=== PATIENT | female | born 1935 | race Caucasian/White ===

== ENCOUNTER 2017-09-18 17:06 | Inpatient (IN) | payer MEDICARE, MEDICAID ==
[~2017-09-18] VITALS: Ht 162.6 cm; Wt 66.3 kg
[2017-09-18] MEDS ORDERED: ALBUTEROL SULFATE 2.5 MG/ 0.5 ML NEBU ONE (17:43)
[2017-09-18] MEDS ORDERED: IPRATROPIUM BROMIDE 0.5 MG/2.5 ML NEBU ONE (17:43)
[2017-09-18] MEDS ORDERED: IPRATROPIUM BROMIDE 0.5 MG/2.5 ML NEBU NEB ONE (17:45)
[2017-09-18] MEDS ORDERED: IV NORMAL SALINE 1000 ML BAG IV ONE (17:45)
[2017-09-18] MEDS ORDERED: ALBUTEROL SULFATE 2.5 MG/3 ML NEBU NEB ONE (17:45)
[2017-09-18] MEDS ORDERED: ACETAMINOPHEN ES 500 MG TABLET PO ONE (17:45)
[2017-09-18] MEDS ORDERED: ACETAMINOPHEN 325 MG TABLET ONE (18:09)
[2017-09-18] MEDS ORDERED: ACETAMINOPHEN ES 500 MG TABLET ONE (18:10)
[2017-09-18 18:20] LABS: BASOPHILS % (AUTO) 0.2 % (0.0-2.0); EOSINOPHILS % (AUTO) 0.1 % (0.0-7.0); HEMATOCRIT 35.9 % (31.2-41.9); HEMOGLOBIN 11.9 g/dL (10.9-14.3); LYMPHOCYTES # (AUTO) 0.4 K/uL (20.0-40.0); LYMPHOCYTES % (AUTO) 8.1 % (20.5-51.5); MEAN CORPUSCULAR HEMOGLOBIN 29.3 uug (24.7-32.8); MEAN CORPUSCULAR HGB CONC 33 g/dL (32.3-35.6); MEAN CORPUSCULAR VOLUME 88.2 fL (75.5-95.3); MONOCYTES # (AUTO) 0.7 K/uL (2.0-10.0); MONOCYTES % (AUTO) 14.9 % (0.0-11.0); NEUTROPHILS # (AUTO) 3.7 K/uL (1.8-8.9); NEUTROPHILS % (AUTO) 76.7 % (38.5-71.5); PLATELET COUNT (AUTO) 156 K/uL (179-408); RED BLOOD CELL COUNT(AUTO) 4.07 MIL/uL (3.63-4.92); WHITE BLOOD COUNT (AUTO) 4.8 K/uL (3.8-11.8)
[2017-09-18 18:22] LABS: CARBON DIOXIDE 34 mmol/L (21-32); CHLORIDE 102 mmol/L (98-107); CREATININE 1.2 mg/dL (0.6-1.3); GLUCOSE 96 mg/dL (74-106); POTASSIUM 4.4 mmol/L (3.5-5.1); UREA NITROGEN, BLOOD 22 mg/dL (7-18)
[2017-09-18 18:37] LABS: ALANINE AMINOTRANSFERASE 33 U/L (14-59); ALKALINE PHOSPHATASE 77 U/L (50-136); ASPARTATE AMINOTRANSFERASE 48 U/L (15-37); BILIRUBIN,DIRECT 0.1 mg/dL (0.0-0.2); BILIRUBIN,TOTAL 0.4 mg/dL (0.2-1.0); TOTAL PROTEIN, SERUM 6.9 g/dL (6.4-8.2)
[2017-09-18] MEDS ORDERED: LEVOFLOXACIN 750MG/D5W 150 ML IV ONE ×2 (18:45)
[2017-09-18] MEDS ORDERED: methylPREDNISolone SOD SUCC 125 MG/2 ML VIAL IV ONE (19:00)
[2017-09-18] MEDS ORDERED: methylPREDNISolone SOD SUCC 125 MG/2 ML VIAL ONE (19:07)
[2017-09-18] MEDS ORDERED: IPRA0.2S48 NEB (19:07)
[2017-09-18] MEDS ORDERED: MOME13HF INH (19:07)
[2017-09-18] MEDS ORDERED: DOCU100C36 PO (19:07)
[2017-09-18] MEDS ORDERED: MAGN400T6 PO (19:07)
[2017-09-18] MEDS ORDERED: DIAZ5TAB4 PO (19:07)
[2017-09-18] MEDS ORDERED: LOPE2CAP PO (19:07)
[2017-09-18] MEDS ORDERED: DIAZ2TAB PO (19:07)
[2017-09-18] MEDS ORDERED: MAG360OR83 PO (19:07)
[2017-09-18] MEDS ORDERED: LEVO75TA PO (19:07)
[2017-09-18] MEDS ORDERED: HYDR28.316 RC (19:07)
[2017-09-18] MEDS ORDERED: ZOLP5TAB2 PO (19:07)
[2017-09-18] MEDS ORDERED: PANT40TA2 PO (19:07)
[2017-09-18] MEDS ORDERED: OXYC-128 PO (19:07)
[2017-09-18] MEDS ORDERED: MIRT15TA7 PO (19:07)
[2017-09-18] MEDS ORDERED: ACET-2154 PO (19:07)
[2017-09-18] MEDS ORDERED: TIOT18CA3 IH (19:07)
--- NOTE | 2017-09-18 19:21 | NUR ---
Report given to incoming shift pending orders and admission pending endorse.
--- NOTE | 2017-09-18 19:25 | NUR ---
HR 83, sbp 139/90.
--- NOTE | 2017-09-18 19:28 | NUR ---
RECEIVED REPORT FROM ANNABELLA KOCH
[2017-09-18] MEDS ORDERED: DOCUSATE SODIUM 100 MG CAPSULE PO PRN (19:30)
[2017-09-18] MEDS ORDERED: ONDANSETRON 4 MG/2 ML VIAL IV PRN (19:30)
[2017-09-18] MEDS ORDERED: Z GUARD REMEDY PASTE 57 GM TUBE TOP PRN ×2 (19:30→23:00)
[2017-09-18] MEDS ORDERED: ACETAMINOPHEN 325 MG TABLET PO PRN (19:30)
[2017-09-18] MEDS ORDERED: HYDROCORTISONE 2.5 % RECTAL CREAM 28.35 GM TUBE RC PRN (19:30)
[2017-09-18] MEDS ORDERED: MAGNESIUM HYDROXIDE 30 ML LIQUID UDC PO PRN (19:30)
[2017-09-18] MEDS ORDERED: LOPERAMIDE HCL 2 MG CAPSULE PO PRN (19:30)
[2017-09-18] MEDS ORDERED: HYDROCODONE/APAP 5-325MG TABLET PO PRN (19:30)
[2017-09-18] MEDS ORDERED: ACETAMINOPHEN 325 MG TABLET PO SCH (19:30)
[2017-09-18] MEDS ORDERED: methylPREDNISolone SOD SUCC 40 MG/ML VIAL IV PRN (19:30)
[2017-09-18] MEDS ORDERED: MAG HYDROX/AL HYDROX/SIMETH 30 ML LIQUID UDC PO SCH (19:30)
[2017-09-18] MEDS ORDERED: OXYCODONE/APAP 5-325 MG TABLET PO PRN (19:30)
[2017-09-18 20:00] VITALS: BP 92/43
--- NOTE | 2017-09-18 20:22 | NUR ---
REPORT GIVEN TO TELE NURSE LAWRENCE RN
--- NOTE | 2017-09-18 20:35 | NUR ---
PT TAKEN TO TELE
--- NOTE | 2017-09-18 20:45 | NUR ---
Admitted pt with Dx of fever/sepsis. Pt AAOx4. Routine admission care done. Plan of care initiated. IV site on Left AC intact and patent. Safety measure initiated and call jamiosn within reach.
[2017-09-18] MEDS: MIRTAZAPINE 15 MG TABLET PO SCH (21:19)
[2017-09-18] MEDS: CEFTRIAXONE 1 G in IV DEXTROSE 5% 50 ML IV SCH (21:19)
[2017-09-18] MEDS: ENOXAPARIN SODIUM 40 MG/0.4 ML DISP.SYRIN SQ SCH (21:20)
[2017-09-18] MEDS: DIAZEPAM 2 MG TABLET PO PRN (21:32)
[2017-09-19] MEDS: methylPREDNISolone SOD SUCC 125 MG/2 ML VIAL IV SCH ×4 (00:55→18:24)
--- NOTE | 2017-09-19 03:02 | NUR ---
NSG: refused dvt pumps.
[2017-09-19 04:00] VITALS: BP 100/53
--- NOTE | 2017-09-19 04:40 | NUR ---
Pt with periods of sinus landen 36-40's. with pauses of 2.6 seconds on tele. BP on right arm 84/40, Left arm 91/53. pt AOx4. Denies any pain or SOB. Elevated foot of bed slightly. Informed SERVICE TECH Roxann, awaiting for response.
--- NOTE | 2017-09-19 05:03 | NUR ---
MARLENA Hackett verify message was received, with no new order given. Will continue to monitor pt.
[2017-09-19] MEDS: IPRATROPIUM BROMIDE 0.5 MG/2.5 ML NEBU NEB PRN ×2 (05:14→09:46)
[2017-09-19] MEDS: ALBUTEROL SULFATE 2.5 MG/3 ML NEBU NEB PRN ×2 (05:14→09:46)
[2017-09-19] MEDS ORDERED: methylPREDNISolone SOD SUCC 125 MG/2 ML VIAL IV SCH (06:00)
[2017-09-19] MEDS: LEVOTHYROXINE SODIUM 75 MCG TABLET PO SCH (06:07)
[2017-09-19] MEDS: PANTOPRAZOLE SODIUM 40 MG TABLET.DR PO SCH (06:07)
--- NOTE | 2017-09-19 06:28 | NUR ---
Pt AOx4. Denies any pain or SOB. On continuous O2 at 2LPM via NC. O2 sat at 92% . Lung sound diminished. No coughing observed. Not in acute distress. IV site on Left AC intact and patent. Sinus rhythm with PAC and block on tele. Latest BP 100/49. Safety measure maintained and call jamison within reach.
[2017-09-19 06:44] LABS: BASOPHILS % (AUTO) 0.1 % (0.0-2.0); HEMATOCRIT 38.5 % (31.2-41.9); HEMOGLOBIN 12.4 g/dL (10.9-14.3); LYMPHOCYTES # (AUTO) 0.6 K/uL (20.0-40.0); LYMPHOCYTES % (AUTO) 16.1 % (20.5-51.5); MEAN CORPUSCULAR HEMOGLOBIN 28.9 uug (24.7-32.8); MEAN CORPUSCULAR HGB CONC 32 g/dL (32.3-35.6); MONOCYTES # (AUTO) 0.1 K/uL (2.0-10.0); NEUTROPHILS # (AUTO) 2.8 K/uL (1.8-8.9); NEUTROPHILS % (AUTO) 81.8 % (38.5-71.5); PLATELET COUNT (AUTO) 153 K/uL (179-408); RED BLOOD CELL COUNT(AUTO) 4.28 MIL/uL (3.63-4.92); WHITE BLOOD COUNT (AUTO) 3.4 K/uL (3.8-11.8)
--- NOTE | 2017-09-19 07:00 | NUR ---
RECEIVED PATIENT ON BED, AWAKE, A AND O X 4, TELE SR PAC. NO ACUTE DISTRESS NOTED. ON O2 @ 2LPM SOB ON EXERTION. IV ACCESS ON THE LEFT AC #20, INTACT AND PATENT. INDEPENDENT WITH ADLS, BRP WITH STAND BY ASSIST. NO COMPLAINTS OF PAIN/DISCOMFORT AT THIS TIME. COMFORT MEASURES PROVIDED. CALL LIGHT WITHIN REACH WILL CONTINUE TO MONITOR CLOSELY.
[2017-09-19 07:02] LABS: CARBON DIOXIDE 31 mmol/L (21-32); CHLORIDE 104 mmol/L (98-107); CREATININE 1.3 mg/dL (0.6-1.3); GLUCOSE 151 mg/dL (74-106); MAGNESIUM 2.1 mg/dL (1.8-2.4); POTASSIUM 4.3 mmol/L (3.5-5.1); UREA NITROGEN, BLOOD 25 mg/dL (7-18)
[2017-09-19] MEDS: MAGNESIUM OXIDE 400 MG TABLET PO SCH ×2 (08:36→18:24)
[2017-09-19] MEDS: DIAZEPAM 5 MG TABLET PO SCH (09:00)
--- NOTE | 2017-09-19 09:00 | NUR ---
VALIUM HELD DUE TO LOW BLOOD PRESSURE 104/47. WILL CONTINUE TO MONITOR.
[2017-09-19] MEDS ORDERED: IPRATROPIUM BROMIDE 0.5 MG/2.5 ML NEBU NEB PRN (10:30)
[2017-09-19 11:30] VITALS: BP 112/57
[2017-09-19] MEDS ORDERED: ZOLPIDEM 5 MG TABLET PO PRN (12:30)
[2017-09-19] MEDS: IPRATROPIUM BROMIDE 0.5 MG/2.5 ML NEBU NEB SCH ×2 (13:25→19:16)
[2017-09-19] MEDS: DIAZEPAM 2 MG TABLET PO PRN ×2 (14:26→20:17)
--- NOTE | 2017-09-19 15:06 | NUR ---
SEEN AND EXAMINED BY DR. HERRERA
[2017-09-19 15:30] VITALS: BP 107/57
--- NOTE | 2017-09-19 19:01 | NUR ---
patient in bed, no SOB noted. no acute distress noted. no complaints of pain/discomfort. all needs attended and anticipated. call light within reach. will endorse accordingly.
--- NOTE | 2017-09-19 19:25 | NUR ---
PT PRESENT LYING IN BED. AAOX4. DENIES ANY PAIN OR SOB. O2 SAT AT 87% ON 2LPM VIA NC. NOT IN ACUTE DISTRESS. IV SITE ON LEFT AC INTACT AND PATENT. PT WITH FREQUENT PAC AND BUNDLE BRANCH BLOCK ON TELE. CONTINUE TO MONITOR. SAFETY MEASURE INITIATED AND CALL GRANDA WITHIN REACH.
[2017-09-19] MEDS: MIRTAZAPINE 15 MG TABLET PO SCH (20:17)
[2017-09-19] MEDS: ENOXAPARIN SODIUM 40 MG/0.4 ML DISP.SYRIN SQ SCH (20:18)
[2017-09-19 20:20] VITALS: BP 109/58
[2017-09-19] MEDS: CEFTRIAXONE 1 G in IV DEXTROSE 5% 50 ML IV SCH (21:48)
[2017-09-20 00:02] VITALS: BP 109/64
[2017-09-20] MEDS: IPRATROPIUM BROMIDE 0.5 MG/2.5 ML NEBU NEB SCH ×5 (00:34→22:56)
[2017-09-20] MEDS: DIAZEPAM 2 MG TABLET PO PRN ×3 (02:18→21:07)
[2017-09-20 04:00] VITALS: BP 102/54
[2017-09-20] MEDS: methylPREDNISolone SOD SUCC 40 MG/ML VIAL IV SCH ×3 (06:03→21:07)
[2017-09-20] MEDS: LEVOTHYROXINE SODIUM 75 MCG TABLET PO SCH (06:03)
[2017-09-20] MEDS: PANTOPRAZOLE SODIUM 40 MG TABLET.DR PO SCH (06:04)
--- NOTE | 2017-09-20 06:18 | NUR ---
Pt AOx4. VS WNL. Denies any pain or SOB. On continuous O2 at 2LPM via NC. O2 sat at 93% . Lung sound clear. Sporadic moist cough but non-productive. Not in acute distress. IV site on Left AC intact and patent. Sinus rhythm with PAC's. PVC's and BBB. Safety measure maintained and call jamison within reach.
[2017-09-20 06:51] LABS: BASOPHILS % (AUTO) 0.1 % (0.0-2.0); HEMATOCRIT 38.5 % (31.2-41.9); HEMOGLOBIN 12.7 g/dL (10.9-14.3); LYMPHOCYTES # (AUTO) 0.9 K/uL (20.0-40.0); LYMPHOCYTES % (AUTO) 9.5 % (20.5-51.5); MEAN CORPUSCULAR HEMOGLOBIN 29.5 uug (24.7-32.8); MEAN CORPUSCULAR HGB CONC 33 g/dL (32.3-35.6); MEAN CORPUSCULAR VOLUME 89.5 fL (75.5-95.3); MONOCYTES # (AUTO) 0.7 K/uL (2.0-10.0); NEUTROPHILS % (AUTO) 83.4 % (38.5-71.5); PLATELET COUNT (AUTO) 177 K/uL (179-408)
--- NOTE | 2017-09-20 07:00 | NUR ---
RECEIVED PATIENT ON BED, AWAKE, A AND O X 4, TELE SR PAC. NO ACUTE DISTRESS NOTED. ON O2 @ 2LPM SOME SOB ON EXERTION. IV ACCESS ON THE LEFT AC #20, INTACT AND PATENT. INDEPENDENT WITH ADLS, BRP WITH STAND BY ASSIST. NO COMPLAINTS OF PAIN/DISCOMFORT AT THIS TIME. COMFORT MEASURES PROVIDED. CALL LIGHT WITHIN REACH WILL CONTINUE TO MONITOR CLOSELY.
[2017-09-20 07:10] LABS: WHITE BLOOD COUNT (AUTO) 9.6 K/uL (3.8-11.8)
[2017-09-20 07:17] LABS: THYROID STIMULATING HORMONE 0.566 mIU/mL (0.358-3.740)
[2017-09-20 08:44] LABS: ALANINE AMINOTRANSFERASE 20 U/L (14-59); ALKALINE PHOSPHATASE 84 U/L (50-136); ASPARTATE AMINOTRANSFERASE 36 U/L (15-37); BILIRUBIN,TOTAL 0.1 mg/dL (0.2-1.0); CARBON DIOXIDE 31 mmol/L (21-32); CHLORIDE 106 mmol/L (98-107); CHOLESTEROL 135 mg/dL (<200); CREATININE 1.1 mg/dL (0.6-1.3); GLUCOSE 98 mg/dL (74-106); HDL CHOLESTEROL 66 mg/dL (40-60); MAGNESIUM 1.9 mg/dL (1.8-2.4); PHOSPHOROUS 4.8 mg/dL (2.5-4.9); POTASSIUM 4.7 mmol/L (3.5-5.1); TOTAL PROTEIN, SERUM 6.4 g/dL (6.4-8.2); TRIGLYCERIDES 51 MG/DL (30-150); UREA NITROGEN, BLOOD 29 mg/dL (7-18)
[2017-09-20] MEDS: MAGNESIUM OXIDE 400 MG TABLET PO SCH ×2 (08:49→17:13)
[2017-09-20] MEDS: DIAZEPAM 5 MG TABLET PO SCH (08:50)
[2017-09-20 10:52] VITALS: BP 117/62
[2017-09-20] MEDS ORDERED: FUROSEMIDE 20 MG/2 ML VIAL IV ONE (12:00)
--- NOTE | 2017-09-20 12:40 | NUR ---
VALIUM 2MG Q4PRN GIVEN DUE TO AGITATION, BLOOD PRESSURE WAS STABLE 130/73, WILL CONTINUE TO MONITOR CLOSELY.
[2017-09-20] MEDS: ALBUTEROL SULFATE 2.5 MG/3 ML NEBU NEB PRN (14:00)
[2017-09-20] MEDS: FLUTICASONE/VILANTEROL 1 EACH BLST.W.DEV INH SCH (14:48)
[2017-09-20 14:55] VITALS: BP 106/50
--- NOTE | 2017-09-20 18:19 | NUR ---
PATIENT AWAKE IN BED, NO ACUTE DISTRESS NOTED, ON O2 @ 2LPM VIA NC, O2 SAT STABLE. VITAL SIGNS STABLE. ATE DINNER WITH GOOD APPETITE. WILL ENDORSE ACCORDINGLY.
[2017-09-20 20:00] VITALS: BP 123/60
[2017-09-20] MEDS: CEFTRIAXONE 1 G in IV DEXTROSE 5% 50 ML IV SCH (20:10)
[2017-09-20] MEDS: ENOXAPARIN SODIUM 40 MG/0.4 ML DISP.SYRIN SQ SCH (21:04)
[2017-09-20] MEDS: MIRTAZAPINE 15 MG TABLET PO SCH (21:07)
--- NOTE | 2017-09-20 22:56 | NUR ---
Pt requested resp neb tx to be adm'd at this time.
[2017-09-21] MEDS: ALBUTEROL SULFATE 2.5 MG/3 ML NEBU NEB PRN (02:30)
[2017-09-21] MEDS: methylPREDNISolone SOD SUCC 40 MG/ML VIAL IV SCH ×2 (06:06→14:44)
[2017-09-21] MEDS: LEVOTHYROXINE SODIUM 75 MCG TABLET PO SCH (06:07)
[2017-09-21] MEDS: PANTOPRAZOLE SODIUM 40 MG TABLET.DR PO SCH (06:07)
[2017-09-21] MEDS: DIAZEPAM 2 MG TABLET PO PRN ×2 (06:28→16:32)
[2017-09-21] MEDS: IPRATROPIUM BROMIDE 0.5 MG/2.5 ML NEBU NEB SCH ×2 (07:31→12:46)
--- NOTE | 2017-09-21 07:49 | NUR ---
RECEIVED SHIFT REPORT FROM [employer]LECT[employer] NURSE. PATIENT RESTING COMFORTABLY IN BED AT THIS TIME, STABLE CONDITION, NO S/S OF DISTRESS. A/OX4. BED IN LOCKED/LOW POSITION, SIDE RAILS UP X2, BED ALARM ON, CALL LIGHT WITHIN REACH. WILL CONTINUE TO MONITOR PATIENT THROUGHOUT SHIFT. NO FEVER NOTED. DOES NOT COMPLAIN OF PAIN.
[2017-09-21] MEDS: MAGNESIUM OXIDE 400 MG TABLET PO SCH ×2 (08:24→16:28)
[2017-09-21] MEDS: FLUTICASONE/VILANTEROL 1 EACH BLST.W.DEV INH SCH (08:25)
[2017-09-21] MEDS: DIAZEPAM 5 MG TABLET PO SCH (09:45)
[2017-09-21 11:27] VITALS: BP 123/65
[2017-09-21 15:37] VITALS: BP 109/56
[2017-09-21] MEDS ORDERED: METH4TAB3 PO (16:12)
[2017-09-21] MEDS ORDERED: AMOX-430 PO (16:12)
[2017-09-21] MEDS ORDERED: HYDR28.316 RC (16:12)
[2017-09-21] MEDS ORDERED: DIAZ2TAB3 PO (16:12)
[2017-09-21] MEDS ORDERED: MIRT15TA7 PO (16:12)
[2017-09-21] MEDS ORDERED: FURO-152 PO (16:12)
[2017-09-21] MEDS ORDERED: FLUT1BLS INH (16:12)
[2017-09-21] MEDS ORDERED: LEVO75TA7 PO (16:12)
[2017-09-21] MEDS ORDERED: Oxycodone/Apap 5-325 Mg PO (16:12)
[2017-09-21] MEDS ORDERED: DOCU-141 PO (16:12)
[2017-09-21] MEDS ORDERED: Magnesium Oxide PO (16:12)
[2017-09-21] MEDS ORDERED: TIOT18CA3 INH ×2 (16:12)
[2017-09-21] MEDS ORDERED: ACET325T53 PO (16:12)
[2017-09-21] MEDS ORDERED: DIAZ5TAB4 PO (16:12)
[2017-09-21] MEDS ORDERED: PANT40TA2 PO (16:12)
[2017-09-21] MEDS ORDERED: ALBU18HF2 INH (16:12)
--- NOTE | 2017-09-21 18:29 | NUR ---
PATIENT DISCHARGED TO [facility] AT THIS TIME IN STABLE CONDITION, NO S/S OF DISTRESS, LEAVING WITH OXYGEN TANK ON 2L NASAL CANNULA. [facility] PROVIDED FOR TRANSPORTATION. INFORMED [facility] THAT PATIENT IS ON THE WAY SO THEY CAN BE READY TO ASSIST PATIENT OUT OF [facility] AND INTO FACILITY. BELONGINGS CHECKLIST CHECKED AND SIGNED BY PATIENT. DISCHARGE PACKET DOCUMENTS SIGNED BY PATIENT. DISCHARGE INSTRUCTIONS/EDUCATION, NEW MEDICATION PRESCRIPTION PROVIDED TO PATIENT . IV DISCONNECTED, ID BAND TAKEN OFF. PATIENT WHEEL CHAIRED DOWN TO FRONT LOBBY AND INTO [facility] IN SAFE CONDITION.
== END 2017-09-21 18:30 | disposition home health service (06) | DRG 193 ==
LOC: ER 17:11 → TELE 20:21 → MED 09-20 15:10
PROVIDERS: ADMIT Internal Medicine; ATTEND Internal Medicine
DX: J15.9 Unspecified bacterial pneumonia (principal); J96.21 Acute and chronic respiratory failure with hypoxia; E43 Unspecified severe protein-calorie malnutrition; N17.0 Acute kidney failure with tubular necrosis; I50.33 Acute on chronic diastolic (congestive) heart failure; J44.0 Chronic obstructive pulmonary disease with (acute) lower respiratory infection; J98.11 Atelectasis; J44.1 Chronic obstructive pulmonary disease with (acute) exacerbation; Z99.81 Dependence on supplemental oxygen; E03.9 Hypothyroidism, unspecified; Z79.899 Other long term (current) drug therapy; F41.9 Anxiety disorder, unspecified; F32.9 Major depressive disorder, single episode, unspecified; K21.9 Gastro-esophageal reflux disease without esophagitis; Z90.49 Acquired absence of other specified parts of digestive tract; Z68.25 Body mass index [BMI] 25.0-25.9, adult; I70.0 Atherosclerosis of aorta
CPT/HCPCS: 36415; 36600; 70030-TC; 71045; 82306; 83605; 83735; 84100; 84443; 85025; 85730; 87040; 87086; 87400; 93005; 93307; 94640; 94664; A4663; A9150; J0696; J1650; J1940; J1956; J2920; J2930; J3590; J7030; J7060

== ENCOUNTER 2017-09-21 23:50 | Inpatient (IN) | payer MEDICARE, MEDICAID ==
[~2017-09-21] VITALS: Ht 162.6 cm; Wt 67.3 kg
[~2017-09-21 23:50] MED LIST: ACET-2154 PO; ACET325T53 PO; ALBU18HF2 INH; AMOX-430 PO; DIAZ2TAB PO; DIAZ2TAB3 PO; DIAZ5TAB4 PO; DOCU-141 PO; DOCU100C36 PO; FLUT1BLS INH; FURO-152 PO; HYDR28.316 RC; IPRA0.2S48 NEB; LEVO75TA PO; LEVO75TA7 PO; LOPE2CAP PO; MAG360OR83 PO; MAGN400T6 PO; METH4TAB3 PO; MIRT15TA7 PO; MOME13HF INH; Magnesium Oxide PO; OXYC-128 PO; Oxycodone/Apap 5-325 Mg PO; PANT40TA2 PO; TIOT18CA3 IH; TIOT18CA3 INH; ZOLP5TAB2 PO
[2017-09-22] MEDS ORDERED: ACETAMINOPHEN 325 MG TABLET PO SCH (00:45)
[2017-09-22] MEDS ORDERED: DIAZEPAM 2 MG TABLET PO PRN (00:45)
[2017-09-22] MEDS ORDERED: ALBUTEROL SULFATE 8 GM HFA.AER.AD INH PRN (00:45)
[2017-09-22] MEDS ORDERED: ACETAMINOPHEN 325 MG TABLET PO PRN (00:45)
[2017-09-22 00:47] LABS: ABG BASE EXCESS 11.1 mmol/L; ABG HCO3 38.3 mmol/L; ABG PCO2 61.8 mmHg (35.0-45.0); ABG PO2 60.8 mmHg (75.0-100.0); ABG SITE LEFT RADIAL; COHb 1.3 % (0.5-1.5); MetHb 0.4 % (0.0-1.5); O2Hb 89.6 % (94.0-97.0); VENT MODE Nasal Cannula
[2017-09-22] MEDS ORDERED: DIAZEPAM 2 MG TABLET PO ONE (01:15)
[2017-09-22 01:18] LABS: BASOPHILS % (AUTO) 0.5 % (0.0-2.0); EOSINOPHILS % (AUTO) 0.1 % (0.0-7.0); HEMATOCRIT 42.1 % (31.2-41.9); HEMOGLOBIN 13.6 g/dL (10.9-14.3); LYMPHOCYTES # (AUTO) 1.2 K/uL (20.0-40.0); LYMPHOCYTES % (AUTO) 19.3 % (20.5-51.5); MEAN CORPUSCULAR HEMOGLOBIN 28.8 uug (24.7-32.8); MEAN CORPUSCULAR HGB CONC 32 g/dL (32.3-35.6); MEAN CORPUSCULAR VOLUME 89.4 fL (75.5-95.3); MONOCYTES # (AUTO) 0.8 K/uL (2.0-10.0); MONOCYTES % (AUTO) 12.9 % (0.0-11.0); NEUTROPHILS # (AUTO) 4.1 K/uL (1.8-8.9); NEUTROPHILS % (AUTO) 67.2 % (38.5-71.5); PLATELET COUNT (AUTO) 174 K/uL (179-408); RED BLOOD CELL COUNT(AUTO) 4.71 MIL/uL (3.63-4.92); WHITE BLOOD COUNT (AUTO) 6.1 K/uL (3.8-11.8)
[2017-09-22 01:36] LABS: ALANINE AMINOTRANSFERASE 27 U/L (14-59); ALKALINE PHOSPHATASE 79 U/L (50-136); ASPARTATE AMINOTRANSFERASE 39 U/L (15-37); BILIRUBIN,DIRECT 0.1 mg/dL (0.0-0.2); BILIRUBIN,TOTAL 0.2 mg/dL (0.2-1.0); CARBON DIOXIDE 36 mmol/L (21-32); CHLORIDE 100 mmol/L (98-107); CREATININE 0.9 mg/dL (0.6-1.3); GLUCOSE 112 mg/dL (74-106); POTASSIUM 4.6 mmol/L (3.5-5.1); TOTAL PROTEIN, SERUM 6.6 g/dL (6.4-8.2); UREA NITROGEN, BLOOD 33 mg/dL (7-18)
[2017-09-22 03:45] VITALS: BP 137/60
[2017-09-22] MEDS ORDERED: PANTOPRAZOLE SODIUM 40 MG TABLET.DR PO SCH (07:00)
[2017-09-22] MEDS ORDERED: LEVOTHYROXINE SODIUM 75 MCG TABLET PO SCH (07:00)
[2017-09-22] MEDS ORDERED: AMOXICILLIN-CLAVUL 875-125MG TABLET PO SCH (09:00)
[2017-09-22] MEDS ORDERED: FUROSEMIDE 20 MG TABLET PO SCH (09:00)
[2017-09-22] MEDS ORDERED: FLUTICASONE/VILANTEROL 1 EACH BLST.W.DEV INH SCH (09:00)
[2017-09-22] MEDS ORDERED: DIAZEPAM 5 MG TABLET PO SCH (09:00)
[2017-09-22] MEDS ORDERED: MAGNESIUM OXIDE 400 MG TABLET PO SCH (09:00)
[2017-09-22] MEDS ORDERED: ALBUTEROL SULFATE 2.5 MG/3 ML NEBU NEB PRN (10:45)
[2017-09-22 11:36] VITALS: BP 102/55
[2017-09-22] MEDS ORDERED: HYDROCORTISONE 2.5 % RECTAL CREAM 28.35 GM TUBE RC PRN (12:00)
[2017-09-22] MEDS ORDERED: MIRTAZAPINE 15 MG TABLET PO SCH (21:00)
[2017-09-22] MEDS ORDERED: DOCUSATE SODIUM 100 MG CAPSULE PO SCH (21:00)
== END 2017-09-22 15:27 | disposition home health service (06) | DRG 193 ==
LOC: ER 23:53 → TELE 09-22 00:20
PROVIDERS: ADMIT Internal Medicine; ATTEND Internal Medicine
DX: J18.9 Pneumonia, unspecified organism (principal); J96.01 Acute respiratory failure with hypoxia; E43 Unspecified severe protein-calorie malnutrition; N17.0 Acute kidney failure with tubular necrosis; I50.33 Acute on chronic diastolic (congestive) heart failure; J44.1 Chronic obstructive pulmonary disease with (acute) exacerbation; J98.11 Atelectasis; J44.0 Chronic obstructive pulmonary disease with (acute) lower respiratory infection; F41.9 Anxiety disorder, unspecified; E03.9 Hypothyroidism, unspecified; Z68.25 Body mass index [BMI] 25.0-25.9, adult; Z90.49 Acquired absence of other specified parts of digestive tract; K21.9 Gastro-esophageal reflux disease without esophagitis; F32.9 Major depressive disorder, single episode, unspecified
CPT/HCPCS: 36415; 36600; 70030-TC; 71045; 83605; 85025; 87040; 93005; A4663